=== PATIENT | female | born 1970 | race Caucasian/White ===

== ENCOUNTER 2022-09-08 12:50 | Outpatient (CLI) | payer BC | END 2022-09-08 12:51 | disposition home or self-care (01) | LOC: CSHMAMMO 12:50 | PROVIDERS: ATTEND Student in an Organized Health Care Education/Training Program | DX: Z12.31 Encounter for screening mammogram for malignant neoplasm of breast (principal) | CPT/HCPCS: 77063; 77067 ==

== ENCOUNTER 2022-10-12 05:58 | Day surgery (SDC) | payer BC ==
[2022-10-08 15:20] VITALS: BMI 25.7
[2022-10-12] MEDS ORDERED: PROPOFOL 40 ML ONE (07:44)
[2022-10-12] MEDS ORDERED: Lidocaine 1% PF 5 ML VIAL ONE ×2 (07:44)
[2022-10-12] MEDS ORDERED: Fentanyl 100 MCG/2 ML VIAL ONE (07:56)
== END 2022-10-12 08:43 | disposition home or self-care (01) ==
LOC: CSHSDC 05:58
PROVIDERS: ATTEND Internal Medicine Gastroenterology
PROC: 0DJD8ZZ Inspection of Lower Intestinal Tract, Via Natural or Artificial Opening Endoscopic (ICD-10-PCS; principal; 2022-10-12)
DX: Z12.11 Encounter for screening for malignant neoplasm of colon (principal); K64.8 Other hemorrhoids; J30.2 Other seasonal allergic rhinitis; M54.9 Dorsalgia, unspecified; G89.29 Other chronic pain; Z79.899 Other long term (current) drug therapy; Z90.49 Acquired absence of other specified parts of digestive tract; Z90.710 Acquired absence of both cervix and uterus; Z98.890 Other specified postprocedural states
CPT/HCPCS: J2704; J3010